=== PATIENT | male | born 1955 | race Caucasian/White ===

== ENCOUNTER 2016-11-25 15:05 | Emergency (ER) | payer OTHER | END 2016-11-25 18:51 | disposition left against medical advice (07) | LOC: ER 15:05 | DX: Z53.21 Procedure and treatment not carried out due to patient leaving prior to being seen by health care provider (principal) | CPT/HCPCS: 36415; 80053; 81003; 82947; 85025 ==

== ENCOUNTER 2016-11-25 20:14 | Emergency (ER) | payer OTHER ==
[2016-11-25] MEDS ORDERED: SODIUM CHLORIDE 0.9% 1,000 ML ONE (23:44)
== END 2016-11-26 02:26 | disposition home or self-care (01) ==
LOC: ER 20:14
DX: R53.1 Weakness (principal); Z79.899 Other long term (current) drug therapy; Z79.4 Long term (current) use of insulin; Z79.84 Long term (current) use of oral hypoglycemic drugs; E11.9 Type 2 diabetes mellitus without complications
CPT/HCPCS: 36415; 71020; 80053; 81003; 82009; 82553; 84484; 85025; 85610; 85730; 87804; 93005; 96360; 96361